=== PATIENT | female | born 1945 | race Caucasian/White ===

== ENCOUNTER 2019-11-21 09:02 | Outpatient (CLI) | payer MEDICARE, SELFPAY ==
--- NOTE | ~2019-11-21 | MM_ITS ---
EXAMINATION: MM screening [facility] [place] BI w [facility] HISTORY: Screening mammogram TECHNIQUE: Craniocaudal and mediolateral oblique 3-D tomosynthesis images were obtained and synthetic 2-D images were generated. CAD analysis was submitted and interpreted. COMPARISON: Comparison to multiple prior studies sequentially, with oldest reviewed study dated 04/15. BREAST PARENCHYMAL COMPOSITION: There are scattered areas of fibroglandular density. FINDINGS: There is no evidence of suspicious mass, calcification, or architectural distortion to sugg est malignancy in either breast. There has been no suspicious interval change. IMPRESSION: 1. No mammographic evidence of malignancy. 2. Recommend routine screening mammography in one year. BI-RADS Category 1: Negative Reviewed, dictated and finalized at location A.
== END 2019-11-21 09:03 | disposition home or self-care (01) ==
LOC: ANHIMG 09:05
PROVIDERS: PCP Internal Medicine; Visit Provider Internal Medicine
DX: Z12.31 Encounter for screening mammogram for malignant neoplasm of breast (principal)
CPT/HCPCS: 77063; 77067

== ENCOUNTER 2020-12-20 08:23 | Outpatient (CLI) | payer MEDICARE, SELFPAY ==
--- NOTE | ~2020-12-20 | MM_ITS ---
EXAMINATION: MM screening [facility] BI w kedar HISTORY: Screening mammogram TECHNIQUE: Craniocaudal and mediolateral oblique 3-D tomosynthesis images were obtained and synthetic 2-D images were generated. CAD analysis was submitted and interpreted. COMPARISON: 11/21/2019, 11/12/2018, 10/28/2017 BREAST PARENCHYMAL COMPOSITION: There are scattered areas of fibroglandular density. FINDINGS: Scattered benign-appearing calcifications are present. There is no evidence of suspicious m ass, calcification, or architectural distortion to suggest malignancy in either breast. There has bee n no suspicious interval change. IMPRESSION: 1. No mammographic evidence of malignancy. 2. Recommend routine screening mammography in one year. BI-RADS Category 2: Benign finding(s). Reviewed, dictated and finalized at location A.
== END 2020-12-20 08:24 | disposition home or self-care (01) ==
LOC: ANHIMG 08:25
PROVIDERS: PCP Internal Medicine; Visit Provider Internal Medicine
DX: Z12.31 Encounter for screening mammogram for malignant neoplasm of breast (principal)
CPT/HCPCS: 77063; 77067

== ENCOUNTER 2021-02-13 08:32 | Outpatient (CLI) | payer MEDICARE, SELFPAY ==
--- NOTE | ~2021-02-13 | DEXA_ITS ---
Bone Density Report Name: Tonya Claudio Age: 75 Sex: Female Ethnicity: White Date of : 1945 Indication: postmenopausal; Referring Provider: Hallie Tavares Study: Bone densitometry was performed. Exam Date: February 13, 2021 Accession number: [id number] Bone Density: Region BMD T-score Z-score Classification AP Spine (L1, L4) 1.423 3.5 5.8 Normal Femoral Neck (Left) 0.846 0.0 2.0 Normal Total Hip (Left) 1.169 1.9 3.6 Normal Total Hip Bilateral Avg 1.147 1.7 3.4 Normal Femoral Neck (Right) 0.778 -0.6 1.4 Normal Total Hip (Right) 1.123 1.5 3.2 Normal World Health Organization criteria for BMD impression classify patients as: Normal (T-score at or above -1.0), Osteopenia (T-score between -1.0 and -2.5), or Osteoporosis (T-score at or below -2.5). 10-year Fracture Risk: FRAX not reported because: All T-scores for Spine Total, Hip Total, Femoral Neck at or above -1.0 Clinical Information Provided by Patient: Has used the following medications: Vitamin D, Calcium Patient maximum height was 64 Menopause Age: 52 No regular weight bearing exercise Drinks caffeinated beverages Onset of menses at age 18 Number of children 3 Impression: The patient has normal bone mass. Discussion: BONE DENSITY IS ABOVE THE MINIMUM DESIRABLE LEVEL AT ALL SKELETAL SITES TESTED. This patient?s bone mineral density is above the minimum desirable level (T-score -1.0 or better) at all sites measured. The patient should follow a healthful lifestyle (good nutrition with adequate calcium and vitamin D, and appropriate weight-bearing exercise). Follow-Up: Consider repeating this study in 5 years or sooner if there is some new clinical indication. Reported by: MEE on 02/13/2021 9:10:00 AM. Reviewed, dictated and finalized at location [facility]ukumar [facility]
== END 2021-02-13 08:33 | disposition home or self-care (01) ==
LOC: ANHIMG 08:35
PROVIDERS: PCP Internal Medicine; Visit Provider Nurse Practitioner
DX: Z78.0 Asymptomatic menopausal state (principal)
CPT/HCPCS: 77080

== ENCOUNTER 2021-12-22 08:49 | Outpatient (CLI) | payer MEDICARE, SELFPAY ==
--- NOTE | ~2021-12-22 | MM_ITS ---
EXAMINATION: MM screening [facility] w [facility] HISTORY: Screening mammogram TECHNIQUE: Craniocaudal and mediolateral oblique 3-D tomosynthesis images were obtained and synthetic 2-D images were generated. CAD analysis was submitted and interpreted. COMPARISON: 12/20/2020, 11/21/2019, 11/12/2018 BREAST PARENCHYMAL COMPOSITION: There are scattered areas of fibroglandular density. FINDINGS: Scattered benign-appearing calcifications are present. There is no suspicious mass, calcifi cation, or architectural distortion to suggest malignancy in either breast. There has been no suspici ous interval change. IMPRESSION: 1. No mammographic evidence of malignancy. 2. Recommend routine screening mammography in one year. BI-RADS Category 2: Benign finding(s). Reviewed, dictated and finalized at location A.
== END 2021-12-22 08:50 | disposition home or self-care (01) ==
LOC: ANHIMG 08:52
PROVIDERS: PCP Internal Medicine; Visit Provider Nurse Practitioner
DX: Z12.31 Encounter for screening mammogram for malignant neoplasm of breast (principal)
CPT/HCPCS: 77063; 77067

== ENCOUNTER 2022-02-26 18:33 | Inpatient (IN) | payer MEDICARE, SELFPAY ==
--- NOTE | ~2022-02-26 | CT_ITS ---
EXAMINATION: CT brain wo con DATE: 02/26/2022 19:25 INDICATION: Head injury. TECHNIQUE: Computed tomography (CT) of the head was performed without intravenous contrast. The mA wa s adjusted according to patient size. Iterative reconstruction technique was employed. The dose-lengt h product was 605.33 mGy-cm. COMPARISON: Head CT 12/10/2016 FINDINGS: There is old infarct in right temporoparietal-occipital region. There is a small old infarc t in left frontoparietal region. There are scattered areas of low attenuation in the cerebral white m atter. There is no intracranial hemorrhage, acute infarction, or abnormal intracranial mass lesion. T he ventricles are normal in size. There is mild mucosal thickening in the paranasal sinuses. There ar e likely changes of ocular lens replacement surgeries. The mastoid air cells are normal. IMPRESSION: 1. Old infarcts involving right temporal parietal occipital region and left frontoparietal region. 2. Stable moderate nonspecific cerebral white matter disease, which likely represents chronic small v essel ischemic disease. Reviewed, dictated and finalized at location A. IMPRESSION: 1. Old infarcts involving right temporal parietal occipital region and left fro ntoparietal region. 2. Stable moderate nonspecific cerebral white matter disease, which likely repr esents chronic small vessel ischemic disease.
--- NOTE | ~2022-02-26 | XR_ITS ---
EXAMINATION: XR foot RT 2V DATE: 02/27/2022 15:56 INDICATION: Right foot injury and pain. TECHNIQUE: 2 views of right foot were obtained. COMPARISON: Right foot radiograph 12/08/2011 FINDINGS: Bone alignment is normal. No fracture. There is chronic heterotopic ossification distal to medial and lateral malleoli. There is mild osteoarthritis of some of the interphalangeal joints. Ther e are enthesophytes at the posterior and plantar aspects of calcaneal tuberosity. IMPRESSION: 1. No fracture. Reviewed, dictated and finalized at location A. IMPRESSION: 1. No fracture.
--- NOTE | ~2022-02-26 | XR_ITS ---
EXAMINATION: XR chest 1V portable INDICATION: COVID 19 positive TECHNIQUE: Portable AP chest at 0640 hours COMPARISON: 12/10/2016 FINDINGS: The lungs are free of acute opacities. No pleural effusion or pneumothorax. The cardiomedia stinal silhouette is stable. IMPRESSION: 1. No acute cardiopulmonary abnormality. Reviewed, dictated and finalized at location B.
[2022-02-26 18:35] VITALS: BP 136/96; PULSE 114; RESP 30; TEMP 36.9; O2SAT 96
--- NOTE | 2022-02-26 18:42 | ECG_ITS ---
Measurements Intervals [place] Rate: 117 P: NC: 0 QRS: -17 QRSD: 82 T: 64 QT: 327 QTc: 458 Interpretive Statements ATRIAL FIBRILLATION WITH RAPID VENTRICULAR RESPONSE LOW QRS VOLTAGE IN PRECORDIAL LEADS POOR R WAVE PROGRESSION, CONSIDER ANTERIOR INFARCT BORDERLINE ST-T WAVE ABNORMALITY- HIGH LATERAL LEADS BASELINE ARTIFACT- I, II, III, AVR, AVL, AVF ABNORMAL ECG NO PREVIOUS ECG AVAILABLE FOR COMPARISON Electronically Signed On 02-26-2022 21:40:37 CDT by Isael Gresham D.O.
[2022-02-26 18:43] VITALS: PULSE 104
[2022-02-26 19:06] LABS: Basophils Percent Auto 0.5 % (0.2-1.2); Eosinophils Percent Auto 0.1 % (0-4.4); Hematocrit 36.9 % (37.0-47.0); Hemoglobin 12.3 g/dL (12.0-15.0); Immature Granulocyte Absolute 0.03 K/mm3 (0.00-0.031); Immature Granulocyte Percent A 0.4 % (0-0.5); Lymphocytes Absolute Auto 0.45 K/mm3 (0.9-3.2); Lymphocytes Percent Auto 5.8 % (18.3-44.2); Mean Corpuscular HGB Conc 33.3 g/dl (32-36); Mean Corpuscular Volume 98.9 fl (80-100); Mean Platelet Volume 10.6 fl (7.4-10.4); Monocytes Absolute Auto 0.8 K/mm3 (0.1-0.6); Monocytes Percent Auto 10.8 % (2.6-8.5); Neutrophils Absolute Auto 6.4 K/mm3 (1.3-6.7); Neutrophils Percent Auto 82.4 % (45.5-73.1); Platelet Count Result 212 k/mm3 (150-375); Red Blood Count 3.73 M/mm3 (4.2-5.4); Red Cell Distribution Width 13.4 % (11.5-14.5); White Blood Count 7.7 K/mm3 (4.5-10.0)
[2022-02-26 19:17] LABS: Alanine Aminotransferase 26 U/L (6-35); Albumin Level 4.7 g/dL (3.5-5.1); Alkaline Phosphatase 105 U/L (38-126); Anion Gap 17 mmol/L (8-16); Aspartate Amino Transferase 54 U/L (14-36); Bilirubin,Total 0.6 mg/dL (0.2-1.3); Blood Urea Nitrogen 14 mg/dL (7-17); Calcium 8.9 mg/dL (8.4-10.2); Carbon Dioxide 21 mmol/L (22-30); Chloride 98 mmol/L (98-107); Estimated CRCL calculation 52 ml/min; Estimated Glomerular Filt Rate > 60; Glucose 146 mg/dL (65-110); Potassium 3.9 mmol/L (3.4-5.0); Sodium 136 mmol/L (137-145)
[2022-02-26 19:23] LABS: INR 1.6; Prothrombin Time 18.2 Seconds (11.1-14.7)
[2022-02-26 19:24] LABS: Partial Thromboplastin Time 31.4 SECONDS (22.3-36.8)
[2022-02-26 19:48] LABS: Appearance Urine Clear (Clear); Bilirubin Urine Negative (Negative); Blood Urine 2+ (Negative); Color Urine Yellow (Yellow); Glucose Urine UA Negative (Negative); Ketones Urine Negative (Negative); Leukocyte Esterase Ur 2+ LEU/UL (Negative); Nitrate Urine Negative (Negative); Protein Urine 2+ mg/dL (Negative); Specific Grav Ur 1.025 (1.001-1.035); Urobilinogen Urine 0.2 mg/dL (<2.0)
[2022-02-26 19:52] LABS: Mucus Urine Rare /lpf; RBC Urine 21-50 /hpf (0-2); Squamous Epithelial Cell Urine Occasional /hpf (Few); WBC Urine 51-75 /hpf
[2022-02-26 19:53] LABS: Add Urine Microscopic? YES
--- NOTE | 2022-02-26 21:09 | ED.GENADULT ---
HPI - General Adult General Chief complaint: Altered Mental Status Stated complaint: SYNCOPE, HIT HEAD Time Seen by Provider: 02/26/22 19:03 History of Present Illness HPI narrative: Patient is a 76-year-old female who presents ER after fall at her her home residence. Per EMS with syncopal episode. Patient takes warfarin for paroxysmal atrial fibrillation. Patient is currently alert and oriented x2. She has no reports of pain but can also provide no history. Related Data Allergies Allergy/AdvReac Type Severity Reaction Status Date / Time amoxicillin Allergy Unknown Confusion Verified 02/26/22 18:47 ampicillin Allergy Unknown Confusion Verified 02/26/22 18:47 codeine Allergy Unknown Confusion Verified 02/26/22 18:47 diazepam Allergy Unknown Confusion Verified 02/26/22 18:47 Penicillins Allergy Unknown Confusion Verified 02/26/22 18:47 Review of Systems Review of Systems: ROS unobtainable: Yes unobtainable due to mental status PMFSH Past Medical History Medical History (Updated 02/26/22 @ 21:52 by Avinash Willingham MD) CVA, old, hemiparesis Gallbladder disease Osteoarthritis Paroxysmal atrial fibrillation Postmenopausal Pure hypercholesterolemia Screening for breast cancer Screening for colon cancer Skin tags, multiple acquired Surgical History Surgical History Previous back surgery Family History Family History Mother Hypertension Patient's mother is Sibling Family history of malignant neoplasm Family history of chronic obstructive pulmonary disease, Onset Age: 55 Patient's sister is Father Patient's father is Social History Social History Smoking status: Never smoker Alcohol intake: never Exam Narrative: GENERAL: Well-appearing, well-nourished, and in no acute distress. HEAD: Normocephalic, atraumatic. EYES: PERRL and EOMI. ENT: Mucous membranes moist. CHEST: Clear to auscultation. No respiratory distress. HEART: Irregular regular rate and rhythm. Normal peripheral pulses. ABDOMEN: Soft, nontender, nondistended. EXTREMITIES: Normal range of motion. No edema. SKIN: Warm, dry, no rash. NEURO: Alert and oriented x2. PSYCH: Normal mood and affect. Course Vital Signs Vital signs: Vital Signs Temperature 98.5 F 02/26/22 18:35 Pulse Rate 114 H 02/26/22 18:35 Respiratory Rate 30 H 02/26/22 18:35 Blood Pressure 136/96 H 02/26/22 18:35 Pulse Oximetry 96 02/26/22 18:35 Oxygen Delivery Room Air 02/26/22 18:35 Temperature 98.5 F 02/26/22 18:35 Pulse Rate 104 H 02/26/22 18:43 Respiratory Rate 30 H 02/26/22 18:35 Blood Pressure 136/96 H 02/26/22 18:35 Pulse Oximetry 96 02/26/22 18:35 Oxygen Delivery Room Air 02/26/22 18:35 Medical Decision Making Vital Signs Vital Signs: Vital Signs Temperature 98.5 F 02/26/22 18:35 Pulse Rate 114 H 02/26/22 18:35 Respiratory Rate 30 H 02/26/22 18:35 Blood Pressure 136/96 H 02/26/22 18:35 Pulse Oximetry 96 02/26/22 18:35 Oxygen Delivery Room Air 02/26/22 18:35 Temperature 98.5 F 02/26/22 18:35 Pulse Rate 104 H 02/26/22 18:43 Respiratory Rate 30 H 02/26/22 18:35 Blood Pressure 136/96 H 02/26/22 18:35 Pulse Oximetry 96 02/26/22 18:35 Oxygen Delivery Room Air 02/26/22 18:35 Lab Data Result diagrams: 02/26/22 18:45 02/26/22 18:45 Labs: Lab Results 02/26/22 02/26/22 02/26/22 Range/Units 18:45 18:45 18:45 WBC 7.7 (4.5-10.0) K/mm3 RBC 3.73 L (4.2-5.4) M/mm3 Hgb 12.3 (12.0-15.0) g/dL Hct 36.9 L (37.0-47.0) % MCV 98.9 (80-100) fl MCH 33.0 (26-34) pg MCHC 33.3 (32-36) g/dl RDW 13.4 (11.5-14.5) % Plt Count 212 (150-375) k/mm3 MPV 10.6 H (7.4-10.4) fl Immature
[2022-02-26 22:07] VITALS: PULSE 110
[2022-02-26] MEDS: SODIUM CHLORIDE 0.9% IV 1,000 ML 999 ML IV CONT (22:07)
[2022-02-26] MEDS: SOTALOL HCL 80 MG TABLET PO (22:07)
[2022-02-26 22:21] VITALS: BP 114/91; PULSE 113; RESP 26; O2SAT 97
--- NOTE | 2022-02-26 23:01 | PM.IMHP ---
H&P: HPI History of Present Illness Date/Time: 02/26/22 23:01 Chief Complaint: Confusion and fall Narrative: 76-year-old female with a past medical history of chronic atrial fibrillation on chronic anticoagulation, CVA, gout, hypertension and type 2 diabetes mellitus who presented to the ER from home due to fall and confusion. Source of information comes from family report as the patient is only oriented to person and year. The patient's reports and review of records from old medical record system that the patient has been having episodes of confusion on and off for a couple of days. He denies ever having had any recent cough congestion or fevers. He states that she has just been off. She was walking to the bathroom today when she fell. He thinks that she may have tripped and fallen. She does not use any assistive devices to walk. She denies any dysuria, hematuria or changes in bowel habits. She spiked a fever of 102.2 after my evaluation. Her reports that she has not been eating as well for the last day or so. Patient denies any sore throat. EMS had reported that the patient had a syncopal episode but they also reported that the patient had evaluated at the hospital recently. The states that the patient has not required any hospitalization or medical intervention in quite some time he does not know where this report came from. Review of Systems Review of Systems: Review of systems unobtainable due to the patient's confusion. [facility] Past Medical History Medical History (Updated 02/27/22 @ 05:38 by Jaycee Wallace DO) Anoxic encephalopathy (~2008) Requiring intubation and G-tube placement with subsequent G-tube removal. Chronic anticoagulation Chronic atrial fibrillation CVA (cerebral vascular accident) (~2016) Gout Mitral valve prolapse Osteoarthritis Postmenopausal Pure hypercholesterolemia Skin tags, multiple acquired Type 2 diabetes mellitus without complications Vitamin D deficiency Surgical History Surgical History (Updated 02/26/22 @ 23:18 by Jaycee Wallace DO) History of appendectomy History of detached retina repair History of total hysterectomy with bilateral salpingo-oophorectomy (BSO) (~2011) Due to dysfunctional uterine bleeding requiring multiple transfusions Hx of cholecystectomy Previous back surgery Family History Family History Mother Hypertension Intracranial bleed Sibling Family history of malignant neoplasm Diabetes mellitus COPD (chronic obstructive pulmonary disease) Father Gangrene Social History Social History (Updated 02/26/22 @ 23:21 by Jaycee Wallace DO) Social History: Patient lives at home with her . She is a homemaker. Surrogate decision maker: Smoking status: Never smoker Alcohol intake: unknown Substance use: unknown Spiritual care concerns: No Meds Home Medications and Allergies Home Medications Medication Instructions Recorded Confirmed Type cholecalciferol (vitamin D3) 50 100 mcg PO DAILY #90 tabs 12/24/20 02/26/22 Rx mcg (2,000 unit) tablet lisinopril 20 mg tablet 20 mg PO DAILY #90 tabs 10/27/21 02/26/22 Rx allopurinol 300 mg tablet 300 mg PO DAILY 02/26/22 02/26/22 History atorvastatin 40 mg tablet 40 mg PO DAILY 02/26/22 02/26/22 History metformin 500 mg tablet 1,000 mg PO DAILY 02/26/22 02/26/22 History metformin 500 mg tablet 500 mg PO .MARION 02/26/22 02/26/22 History sotalol 80 mg tablet 80 mg PO Q12H 02/26/22 02/26/22 History warfarin 5 mg tablet 2.5 mg PO .MON/Wed02/26/22 02/26/22 History warfarin 5 mg tablet 5 mg PO ./WED//SAT/S 02/26/22 02/26/22 History Allergies Allergy/AdvReac Type Severity Reaction Status Date / Time amoxicillin Allergy Unknown Confusion Verified 02/26/22 18:47 ampicillin Allergy Unknown Confusion Verified 02/26/22 18:47 codeine Allergy Unknown Confusion Verifi
[2022-02-26 23:07] VITALS: BP 140/90; PULSE 96; RESP 18; O2SAT 98
[2022-02-26 23:37] VITALS: BMI 35.2
--- NOTE | 2022-02-26 23:41 | ADMGEN ---
This patient, Tonya Claudio, was admitted to 2 Medical Room 258-01. Patient/family oriented to hospital policies and general routines including ID bracelet, bed and alarms, visiting hours, pain management, procedures, bathroom and other care routines, personal items, smoking policy, room service/diet, and visiting hours. Information on how to activate the Rapid Response Team has been discussed. Patient/Family are encouraged to report perceived risks to care and to ask questions if they do not understand what they are told or what they should do.
[2022-02-26 23:42] VITALS: BMI 35.4
[2022-02-27] VITALS (13 sets, daily range): BP systolic 106–142; BP diastolic 64–88; PULSE 60–99; RESP 16–20; TEMP 36.2–39; O2SAT 92–98
[2022-02-27] MEDS: SODIUM CHLORIDE 0.9% IV 1,000 ML 125 ML IV CONT (00:30)
[2022-02-27] MEDS: ACETAMINOPHEN 325 MG TABLET 650 MG PO (02:50)
[2022-02-27 05:14] LABS: Influenza A QL RT-PCR Negative (Negative); Influenza B QL RT-PCR Negative (Negative); SARS-CoV-2 RNA PCR Positive
[2022-02-27 06:08] LABS: Hematocrit 32.7 % (37.0-47.0); Mean Corpuscular HGB Conc 33.6 g/dl (32-36); Mean Corpuscular Hemoglobin 33.4 pg (26-34); Mean Corpuscular Volume 99.4 fl (80-100); Mean Platelet Volume 10.4 fl (7.4-10.4); Platelet Count Result 166 k/mm3 (150-375); Red Blood Count 3.29 M/mm3 (4.2-5.4); Red Cell Distribution Width 13.3 % (11.5-14.5); White Blood Count 6.2 K/mm3 (4.5-10.0)
[2022-02-27 06:45] LABS: Anion Gap 11 mmol/L (8-16); Blood Urea Nitrogen 16 mg/dL (7-17); Calcium 8.4 mg/dL (8.4-10.2); Carbon Dioxide 23 mmol/L (22-30); Chloride 101 mmol/L (98-107); Estimated CRCL calculation 60 ml/min; Estimated Glomerular Filt Rate > 60; Glucose 97 mg/dL (65-110); Potassium 3.8 mmol/L (3.4-5.0); Sodium 135 mmol/L (137-145)
[2022-02-27 08:36] LABS: Glucose Point of Care 82 mg/dl (65-105)
[2022-02-27 09:24] LABS: INR 1.4; Prothrombin Time 16.2 Seconds (11.1-14.7)
[2022-02-27 10:36] LABS: Glucose Point of Care 85 mg/dl (65-105)
[2022-02-27] MEDS: allopurinoL 300 MG TABLET PO (10:38)
[2022-02-27] MEDS: CHOLECALCIFEROL 1,000 UNITS TABLET 4000 UNITS PO (10:38)
[2022-02-27] MEDS: SOTALOL HCL 80 MG TABLET PO ×2 (10:39→20:49)
[2022-02-27] MEDS: SODIUM CHLORIDE 0.9% IV 1,000 ML 75 ML IV CONT ×2 (10:46→20:48)
[2022-02-27] MEDS: metFORMIN HCL 500 MG TABLET 1000 MG PO (10:47)
[2022-02-27] MEDS: ATORVASTATIN 40 MG TABLET PO (10:47)
[2022-02-27] MEDS: lisinopriL 20 MG TABLET PO (10:47)
[2022-02-27 12:10] LABS: Glucose Point of Care 89 mg/dl (65-105)
--- NOTE | 2022-02-27 15:06 | PCPTNOTE ---
Attempted PT evaluation, patient reporting R ankle/knee pain at rest. Upon observation, Patient's R knee swollen and R ankle swollen/bruised. RN was brought into room to assess. RN contacted hospitalist. Per RN, x-ray to be ordered for R ankle. Will Wait to evaluate until it is known it is safe to transfer patient. Will Follow.
--- NOTE | 2022-02-27 15:11 | P.PNIM_ITS ---
Progress Note: A&P Assessment and Plan (1) COVID-19: Code(s): U07.1 - COVID-19 Status: Acute Assessment and Plan: COVID PCR positive on 02/27/2022. * CXR with no acute findings * supportive care as needed. Patient has no respiratory symptoms. * not a candidate for dexamethasone or remdesivir as she has no supplemental oxygen requirement * unable to indicate vaccination status. No report of COVID vaccine in EMR * continue isolation precautions (2) Pyuria: Code(s): R82.81 - Pyuria Status: Acute Assessment and Plan: UA is abnormal with 2+ leuk esterase and 51-75 white blood cells * urine culture is pending * continue empiric ceftriaxone while awaiting urine culture * no leukocytosis. patient is febrile with T-max 102.2?, however this may be due to COVID-19. * continue with gentle IV fluid hydration until better tolerating p.o. intake (3) Acute metabolic encephalopathy: Code(s): G93.41 - Metabolic encephalopathy Status: Acute Assessment and Plan: Due to underlying infection with COVID and possible UTI. * Patient A&O x2 today * Will continue to monitor and provide supportive care. (4) Chronic atrial fibrillation with RVR: Code(s): I48.20 - Chronic atrial fibrillation, unspecified Status: Acute Assessment and Plan: Patient has chronic atrial fibrillation and was in AFib RVR in the ER. * Patient's heart rate improved after 1 L fluid bolus and the patient's evening dose of sotalol. * rate controlled at this time * continue home sotalol * monitor on telemetry. (5) Chronic anticoagulation: Code(s): Z79.01 - FPC (current) use of anticoagulants Status: Acute Assessment and Plan: maintained on warfarin due to history of AFib * INR subtherapeutic at 1.4 * received increased dose of warfarin last night 7.5 mg and will transition to 5 mg daily warfarin starting tonight * monitor INR daily. goal is 2-3 * INR may be affected by antibiotics, continue to monitor (6) Fall: Qualifiers: Encounter type: initial encounter Qualified Code(s): W19.XXXA - Unspecified fall, initial encounter Code(s): W19.XXXA - Unspecified fall, initial encounter Status: Acute Assessment and Plan: patient had mechanical fall at home * head CT with no acute findings * when patient was evaluated by therapy there was notice of bruising and tenderness of the right foot. Will obtain right foot x-ray. * appreciate PT/OT eval * fall precautions implemented (7) Type 2 diabetes mellitus: Code(s): E11.9 - Type 2 diabetes mellitus without complications Status: Acute Assessment and Plan: A1c is 5.8 * blood sugars well controlled * continue home metformin * continue Accu-Cheks, low-dose sliding scale insulin, hypoglycemic protocol Subjective Date/time seen: 02/27/22 15:11 Interval history: date of service: 02/27/2022 Tonya Claudio is a 76-year-old male with a history of CVA, chronic atrial fibrillation on anticoagulation, type 2 diabetes mellitus, mitral valve prolapse, and hypertension who is seen in follow-up for encephalopathy secondary to UTI and COVID. Patient is oriented to self and location only. She is unable to provide a very reliable history. She does specifically deny abdominal pain, chest pain, shortness of breath. denies swelling of her extremities. Reports having a bowel movement today. Unable to obtain any additional
--- NOTE | 2022-02-27 15:11 | PM.IMPN ---
Progress Note: A&P Assessment and Plan (1) COVID-19: Code(s): U07.1 - COVID-19 Status: Acute Assessment and Plan: COVID PCR positive on 02/27/2022. CXR with no acute findings supportive care as needed. Patient has no respiratory symptoms. not a candidate for dexamethasone or remdesivir as she has no supplemental oxygen requirement unable to indicate vaccination status. No report of COVID vaccine in EMR continue isolation precautions (2) Pyuria: Code(s): R82.81 - Pyuria Status: Acute Assessment and Plan: UA is abnormal with 2+ leuk esterase and 51-75 white blood cells urine culture is pending continue empiric ceftriaxone while awaiting urine culture no leukocytosis. patient is febrile with T-max 102.2?, however this may be due to COVID-19. continue with gentle IV fluid hydration until better tolerating p.o. intake (3) Acute metabolic encephalopathy: Code(s): G93.41 - Metabolic encephalopathy Status: Acute Assessment and Plan: Due to underlying infection with COVID and possible UTI. Patient A&O x2 today Will continue to monitor and provide supportive care. (4) Chronic atrial fibrillation with RVR: Code(s): I48.20 - Chronic atrial fibrillation, unspecified Status: Acute Assessment and Plan: Patient has chronic atrial fibrillation and was in AFib RVR in the ER. Patient's heart rate improved after 1 L fluid bolus and the patient's evening dose of sotalol. rate controlled at this time continue home sotalol monitor on telemetry. (5) Chronic anticoagulation: Code(s): Z79.01 - USP (current) use of anticoagulants Status: Acute Assessment and Plan: maintained on warfarin due to history of AFib INR subtherapeutic at 1.4 received increased dose of warfarin last night 7.5 mg and will transition to 5 mg daily warfarin starting tonight monitor INR daily. goal is 2-3 INR may be affected by antibiotics, continue to monitor (6) Fall: Qualifiers: Encounter type: initial encounter Qualified Code(s): W19.XXXA - Unspecified fall, initial encounter Code(s): W19.XXXA - Unspecified fall, initial encounter Status: Acute Assessment and Plan: patient had mechanical fall at home head CT with no acute findings when patient was evaluated by therapy there was notice of bruising and tenderness of the right foot. Will obtain right foot x-ray. appreciate PT/OT eval fall precautions implemented (7) Type 2 diabetes mellitus: Code(s): E11.9 - Type 2 diabetes mellitus without complications Status: Acute Assessment and Plan: A1c is 5.8 blood sugars well controlled continue home metformin continue Accu-Cheks, low-dose sliding scale insulin, hypoglycemic protocol Subjective Date/time seen: 02/27/22 15:11 Interval history: date of service: 02/27/2022 Tonya Claudio is a 76-year-old male with a history of CVA, chronic atrial fibrillation on anticoagulation, type 2 diabetes mellitus, mitral valve prolapse, and hypertension who is seen in follow-up for encephalopathy secondary to UTI and COVID. Patient is oriented to self and location only. She is unable to provide a very reliable history. She does specifically deny abdominal pain, chest pain, shortness of breath. denies swelling of her extremities. Reports having a bowel movement today. Unable to obtain any additional history Review of Systems Review of Systems: General: obese, well-appearing 76-year-old female, supine in bed, comfortable, NARD Neuro: awake, alert and oriented x to self and location. States the year is 2022. Speech clear, no focal neuro deficits noted HEENMT: normocephalic, atraumatic, EOMI, sclerae anicteric, moist oral mucosa Respiratory: clear to auscultation bilaterally, nonlabored breathing Cardio: regular rate, regular rhyth
--- NOTE | 2022-02-27 15:21 | PCOTNOTE ---
Per physical therapy's attempt to evaluation, patient's R knee swollen and R ankle swollen/bruised. RN was brought into room to assess. RN contacted hospitalist. Per RN, x-ray to be ordered for R ankle. Will Wait to evaluate until it is known it is safe to transfer patient. Will Follow.
[2022-02-27 17:17] LABS: Glucose Point of Care 90 mg/dl (65-105)
[2022-02-27] MEDS: WARFARIN (*PBKC) 5 MG TABLET PO (17:57)
[2022-02-27] MEDS: metFORMIN HCL 500 MG TABLET PO (17:58)
[2022-02-27 21:34] LABS: Glucose Point of Care 85 mg/dl (65-105)
[2022-02-28] VITALS (11 sets, daily range): BP systolic 110–138; BP diastolic 71–78; PULSE 72–123; RESP 16; TEMP 36.6–37; O2SAT 96–97
[2022-02-28 05:51] LABS: Hematocrit 35.1 % (37.0-47.0); Hemoglobin 11.6 g/dL (12.0-15.0); Mean Corpuscular Hemoglobin 33.4 pg (26-34); Mean Corpuscular Volume 101.2 fl (80-100); Mean Platelet Volume 10.6 fl (7.4-10.4); Platelet Count Result 171 k/mm3 (150-375); Red Blood Count 3.47 M/mm3 (4.2-5.4); Red Cell Distribution Width 13.4 % (11.5-14.5); White Blood Count 5.5 K/mm3 (4.5-10.0)
[2022-02-28 06:05] LABS: Alanine Aminotransferase 40 U/L (6-35); Albumin Level 3.8 g/dL (3.5-5.1); Alkaline Phosphatase 91 U/L (38-126); Anion Gap 11 mmol/L (8-16); Aspartate Amino Transferase 126 U/L (14-36); Bilirubin,Total 0.4 mg/dL (0.2-1.3); Blood Urea Nitrogen 15 mg/dL (7-17); CRP 5.7 mg/dL (<1.0); Calcium 8.3 mg/dL (8.4-10.2); Carbon Dioxide 21 mmol/L (22-30); Chloride 101 mmol/L (98-107); Estimated CRCL calculation 67 ml/min; Estimated Glomerular Filt Rate > 60; Glucose 78 mg/dL (65-110); Lactate Dehydrogenase 340 U/L (120-246); Potassium 3.6 mmol/L (3.4-5.0); Sodium 133 mmol/L (137-145)
[2022-02-28 08:45] LABS: INR 1.2
[2022-02-28 09:02] LABS: Glucose Point of Care 76 mg/dl (65-105)
[2022-02-28] MEDS: metFORMIN HCL 500 MG TABLET 1000 MG PO (10:56)
[2022-02-28] MEDS: CHOLECALCIFEROL 1,000 UNITS TABLET 4000 UNITS PO (10:56)
[2022-02-28] MEDS: allopurinoL 300 MG TABLET PO (10:57)
[2022-02-28] MEDS: SOTALOL HCL 80 MG TABLET PO ×2 (10:57→21:17)
[2022-02-28] MEDS: lisinopriL 20 MG TABLET PO (10:57)
[2022-02-28] MEDS: ATORVASTATIN 40 MG TABLET PO (10:58)
--- NOTE | 2022-02-28 11:58 | P.PNIM_ITS ---
Progress Note: A&P Assessment and Plan (1) COVID-19: Code(s): U07.1 - COVID-19 Status: Acute Assessment and Plan: COVID PCR positive on 02/27/2022. * CXR with no acute findings * supportive care as needed. Patient has no respiratory symptoms. * not a candidate for dexamethasone or remdesivir as she has no supplemental oxygen requirement * continue isolation precautions * patient has not been vaccinated for COVID-19 (2) Acute UTI: Code(s): N39.0 - Urinary tract infection, site not specified Status: Acute Assessment and Plan: UA is abnormal with 2+ leuk esterase and 51-75 white blood cells * preliminary urine culture with growth of Gram-negative bacilli * continue empiric ceftriaxone while awaiting urine culture * no leukocytosis. patient febrile with T-max 102.2?, however this may be due to COVID-19. has been afebrile >24h * will discontinue IV fluids at this time as patient has been rehydrated appropriately, tolerating p.o. intake, no longer febrile (3) Acute metabolic encephalopathy: Code(s): G93.41 - Metabolic encephalopathy Status: Acute Assessment and Plan: likely secondary to acute UTI * Patient A&O x2 accurately today, however mental status is significantly improved * Will continue to monitor and provide supportive care. (4) Chronic atrial fibrillation with RVR: Code(s): I48.20 - Chronic atrial fibrillation, unspecified Status: Acute Assessment and Plan: Patient has chronic atrial fibrillation and was in AFib RVR in the ER. * Patient's heart rate improved after 1 L fluid bolus and the patient's evening dose of sotalol. * rate controlled at this time * continue home sotalol * monitor on telemetry. (5) Chronic anticoagulation: Code(s): Z79.01 - prison (current) use of anticoagulants Status: Acute Assessment and Plan: maintained on warfarin due to history of AFib * INR subtherapeutic at 1.2 * will increase warfarin to 7.5 mg tonight * monitor INR daily. goal is 2-3 * INR may be affected by antibiotics, continue to monitor (6) Fall: Qualifiers: Encounter type: initial encounter Qualified Code(s): W19.XXXA - Unspec ified fall, initial encounter Code(s): W19.XXXA - Unspecified fall, initial encounter Status: Acute Assessment and Plan: patient had mechanical fall at home * head CT with no acute findings * when patient was evaluated by therapy there was notice of bruising and tenderness of the right foot. Right foot x-ray with no injury or fracture * appreciate PT/OT eval * fall precautions implemented (7) Type 2 diabetes mellitus: Code(s): E11.9 - Type 2 diabetes mellitus without complications Status: Acute Assessment and Plan: A1c is 5.8 * blood sugars well controlled * continue home metformin * continue Accu-Cheks, low-dose sliding scale insulin, hypoglycemic protocol Subjective Date/time seen: 02/28/22 11:58 Interval history: date of service: 02/28/2022 Tonya Claudio is a 76-year-old male with a history of CVA, chronic atrial fibrillation on anticoagulation, type 2 diabetes mellitus, mitral valve prolapse, and hypertension who is seen in follow-up for encephalopathy secondary to UTI and COVID. mental status seems improved today. Patient is oriented to self and location. Initially states the year is 2022, but corrects to 2021. initially states the month is January but then corrects
--- NOTE | 2022-02-28 11:58 | PM.IMPN ---
Progress Note: A&P Assessment and Plan (1) COVID-19: Code(s): U07.1 - COVID-19 Status: Acute Assessment and Plan: COVID PCR positive on 02/27/2022. CXR with no acute findings supportive care as needed. Patient has no respiratory symptoms. not a candidate for dexamethasone or remdesivir as she has no supplemental oxygen requirement continue isolation precautions patient has not been vaccinated for COVID-19 (2) Acute UTI: Code(s): N39.0 - Urinary tract infection, site not specified Status: Acute Assessment and Plan: UA is abnormal with 2+ leuk esterase and 51-75 white blood cells preliminary urine culture with growth of Gram-negative bacilli continue empiric ceftriaxone while awaiting urine culture no leukocytosis. patient febrile with T-max 102.2?, however this may be due to COVID-19. has been afebrile >24h will discontinue IV fluids at this time as patient has been rehydrated appropriately, tolerating p.o. intake, no longer febrile (3) Acute metabolic encephalopathy: Code(s): G93.41 - Metabolic encephalopathy Status: Acute Assessment and Plan: likely secondary to acute UTI Patient A&O x2 accurately today, however mental status is significantly improved Will continue to monitor and provide supportive care. (4) Chronic atrial fibrillation with RVR: Code(s): I48.20 - Chronic atrial fibrillation, unspecified Status: Acute Assessment and Plan: Patient has chronic atrial fibrillation and was in AFib RVR in the ER. Patient's heart rate improved after 1 L fluid bolus and the patient's evening dose of sotalol. rate controlled at this time continue home sotalol monitor on telemetry. (5) Chronic anticoagulation: Code(s): Z79.01 - residential (current) use of anticoagulants Status: Acute Assessment and Plan: maintained on warfarin due to history of AFib INR subtherapeutic at 1.2 will increase warfarin to 7.5 mg tonight monitor INR daily. goal is 2-3 INR may be affected by antibiotics, continue to monitor (6) Fall: Qualifiers: Encounter type: initial encounter Qualified Code(s): W19.XXXA - Unspecified fall, initial encounter Code(s): W19.XXXA - Unspecified fall, initial encounter Status: Acute Assessment and Plan: patient had mechanical fall at home head CT with no acute findings when patient was evaluated by therapy there was notice of bruising and tenderness of the right foot. Right foot x-ray with no injury or fracture appreciate PT/OT eval fall precautions implemented (7) Type 2 diabetes mellitus: Code(s): E11.9 - Type 2 diabetes mellitus without complications Status: Acute Assessment and Plan: A1c is 5.8 blood sugars well controlled continue home metformin continue Accu-Cheks, low-dose sliding scale insulin, hypoglycemic protocol Subjective Date/time seen: 02/28/22 11:58 Interval history: date of service: 02/28/2022 Tonya Claudio is a 76-year-old male with a history of CVA, chronic atrial fibrillation on anticoagulation, type 2 diabetes mellitus, mitral valve prolapse, and hypertension who is seen in follow-up for encephalopathy secondary to UTI and COVID. mental status seems improved today. Patient is oriented to self and location. Initially states the year is 2022, but corrects to 2021. initially states the month is January but then corrects to February. cannot state the president. She states she is feeling more like herself today. She did not like what was surfer breakfast, therefore she has not eaten anything. She does endorse slightly decreased appetite. Denies abdominal pain, nausea, or vomiting. She denies dysuria. No hematuria. Denies urgency or frequency. Denies fevers or chills. No chest pain. No shortness of breath or cough. Denies diarrhea. States she was able to g
[2022-02-28 12:51] LABS: Glucose Point of Care 104 mg/dl (65-105)
[2022-02-28 17:48] LABS: Glucose Point of Care 95 mg/dl (65-105)
[2022-02-28] MEDS: WARFARIN (*PBKC) 7.5 MG TABLET PO (17:57)
[2022-02-28] MEDS: metFORMIN HCL 500 MG TABLET PO (17:57)
[2022-02-28 21:25] LABS: Glucose Point of Care 80 mg/dl (65-105)
[2022-03-01] VITALS (8 sets, daily range): BP systolic 111–138; BP diastolic 74–91; PULSE 71–101; RESP 16–21; TEMP 36.1–36.8; O2SAT 95–100
[2022-03-01 05:28] LABS: Hematocrit 35.7 % (37.0-47.0); Hemoglobin 11.8 g/dL (12.0-15.0); Mean Corpuscular HGB Conc 33.1 g/dl (32-36); Mean Corpuscular Hemoglobin 33.1 pg (26-34); Mean Platelet Volume 10.4 fl (7.4-10.4); Platelet Count Result 182 k/mm3 (150-375); Red Blood Count 3.57 M/mm3 (4.2-5.4); Red Cell Distribution Width 13.3 % (11.5-14.5); White Blood Count 4.6 K/mm3 (4.5-10.0)
[2022-03-01 05:38] LABS: INR 1.3; Prothrombin Time 15.3 Seconds (11.1-14.7)
[2022-03-01 05:46] LABS: Anion Gap 14 mmol/L (8-16); Blood Urea Nitrogen 17 mg/dL (7-17); Calcium 8.1 mg/dL (8.4-10.2); Carbon Dioxide 21 mmol/L (22-30); Chloride 102 mmol/L (98-107); Estimated CRCL calculation 60 ml/min; Estimated Glomerular Filt Rate > 60; Glucose 80 mg/dL (65-110); Potassium 3.6 mmol/L (3.4-5.0); Sodium 137 mmol/L (137-145)
[2022-03-01 08:43] LABS: Glucose Point of Care 90 mg/dl (65-105)
[2022-03-01] MEDS: SOTALOL HCL 80 MG TABLET PO ×2 (09:21→21:34)
[2022-03-01] MEDS: CHOLECALCIFEROL 1,000 UNITS TABLET 4000 UNITS PO (09:22)
[2022-03-01] MEDS: ATORVASTATIN 40 MG TABLET PO (09:22)
[2022-03-01] MEDS: metFORMIN HCL 500 MG TABLET 1000 MG PO (09:22)
[2022-03-01] MEDS: allopurinoL 300 MG TABLET PO (09:22)
[2022-03-01] MEDS: lisinopriL 20 MG TABLET PO (09:22)
--- NOTE | 2022-03-01 10:44 | P.PNIM_ITS ---
Progress Note: A&P Assessment and Plan (1) COVID-19: Code(s): U07.1 - COVID-19 Status: Acute Assessment and Plan: COVID PCR positive on 02/27/2022. * CXR with no acute findings * supportive care as needed. Patient has no respiratory symptoms. * not a candidate for dexamethasone or remdesivir as she has no supplemental oxygen requirement * continue isolation precautions * patient has not been vaccinated for COVID-19 (2) Acute UTI: Code(s): N39.0 - Urinary tract infection, site not specified Status: Acute Assessment and Plan: UA is abnormal with 2+ leuk esterase and 51-75 white blood cells * urine culture with growth of resistant E. coli * ceftriaxone discontinued due to intermediate susceptibility * transition to IV cefepime * no leukocytosis. patient febrile with T-max 102.2?, however this may be due to COVID-19. has been afebrile >48h (3) Acute metabolic encephalopathy: Code(s): G93.41 - Metabolic encephalopathy Status: Acute Assessment and Plan: likely secondary to acute UTI * Marked improvement in mental status * Patient A&O x2 accurately today. Suspect this is baseline * Will continue to monitor and provide supportive care. (4) Chronic atrial fibrillation with RVR: Code(s): I48.20 - Chronic atrial fibrillation, unspecified Status: Acute Assessment and Plan: Patient has chronic atrial fibrillation and was in AFib RVR in the ER. * Patient's heart rate improved after 1 L fluid bolus and the patient's evening dose of sotalol. * rate controlled at this time * continue home sotalol * monitor on telemetry. (5) Chronic anticoagulation: Code(s): Z79.01 - senior living (current) use of anticoagulants Status: Acute Assessment and Plan: maintained on warfarin due to history of AFib * INR subtherapeutic at 1.3 * will increase warfarin to 10 mg tonight * monitor INR daily. goal is 2-3 * INR may be affected by antibiotics, continue to monitor (6) Fall: Qualifiers: Encounter type: initial encounter Qualified Code(s): W19.XXXA - Unspecified fall, initial encounter Code(s): W19.XXXA - Unspecified fall, initial encounter Status: Acute Assessment and Plan: patient had mechanical fall at home * head CT with no acute findings * when patient was evaluated by therapy there was notice of bruising and tenderness of the right foot. Right foot x-ray with no injury or fracture * appreciate PT/OT eval * fall precautions implemented (7) Type 2 diabetes mellitus: Code(s): E11.9 - Type 2 diabetes mellitus without complications Status: Acute Assessment and Plan: A1c is 5.8 * blood sugars well controlled * continue home metformin * continue Accu-Cheks, low-dose sliding scale insulin, hypoglycemic protocol Subjective Date/time seen: 03/01/22 10:44 Interval history: date of service: 03/01/2022 Tonya Claudio is a 76-year-old male with a history of CVA, chronic atrial fibrillation on anticoagulation, type 2 diabetes mellitus, mitral valve prolapse, and hypertension who is seen in follow-up for encephalopathy secondary to UTI and COVID. She is feeling better today. Starting to feel more like herself. She denies dysuria or hematuria. Denies abdominal pain, flank pain, nausea, vomiting, fever, chills. No shortness of breath. No cough. Denies chest pain. She has no additional concerns. Review of System
--- NOTE | 2022-03-01 10:44 | PM.IMPN ---
Progress Note: A&P Assessment and Plan (1) COVID-19: Code(s): U07.1 - COVID-19 Status: Acute Assessment and Plan: COVID PCR positive on 02/27/2022. CXR with no acute findings supportive care as needed. Patient has no respiratory symptoms. not a candidate for dexamethasone or remdesivir as she has no supplemental oxygen requirement continue isolation precautions patient has not been vaccinated for COVID-19 (2) Acute UTI: Code(s): N39.0 - Urinary tract infection, site not specified Status: Acute Assessment and Plan: UA is abnormal with 2+ leuk esterase and 51-75 white blood cells urine culture with growth of resistant E. coli ceftriaxone discontinued due to intermediate susceptibility transition to IV cefepime no leukocytosis. patient febrile with T-max 102.2?, however this may be due to COVID-19. has been afebrile >48h (3) Acute metabolic encephalopathy: Code(s): G93.41 - Metabolic encephalopathy Status: Acute Assessment and Plan: likely secondary to acute UTI Marked improvement in mental status Patient A&O x2 accurately today. Suspect this is baseline Will continue to monitor and provide supportive care. (4) Chronic atrial fibrillation with RVR: Code(s): I48.20 - Chronic atrial fibrillation, unspecified Status: Acute Assessment and Plan: Patient has chronic atrial fibrillation and was in AFib RVR in the ER. Patient's heart rate improved after 1 L fluid bolus and the patient's evening dose of sotalol. rate controlled at this time continue home sotalol monitor on telemetry. (5) Chronic anticoagulation: Code(s): Z79.01 - intermediate accountant (current) use of anticoagulants Status: Acute Assessment and Plan: maintained on warfarin due to history of AFib INR subtherapeutic at 1.3 will increase warfarin to 10 mg tonight monitor INR daily. goal is 2-3 INR may be affected by antibiotics, continue to monitor (6) Fall: Qualifiers: Encounter type: initial encounter Qualified Code(s): W19.XXXA - Unspecified fall, initial encounter Code(s): W19.XXXA - Unspecified fall, initial encounter Status: Acute Assessment and Plan: patient had mechanical fall at home head CT with no acute findings when patient was evaluated by therapy there was notice of bruising and tenderness of the right foot. Right foot x-ray with no injury or fracture appreciate PT/OT eval fall precautions implemented (7) Type 2 diabetes mellitus: Code(s): E11.9 - Type 2 diabetes mellitus without complications Status: Acute Assessment and Plan: A1c is 5.8 blood sugars well controlled continue home metformin continue Accu-Cheks, low-dose sliding scale insulin, hypoglycemic protocol Subjective Date/time seen: 03/01/22 10:44 Interval history: date of service: 03/01/2022 Tonya Claudio is a 76-year-old male with a history of CVA, chronic atrial fibrillation on anticoagulation, type 2 diabetes mellitus, mitral valve prolapse, and hypertension who is seen in follow-up for encephalopathy secondary to UTI and COVID. She is feeling better today. Starting to feel more like herself. She denies dysuria or hematuria. Denies abdominal pain, flank pain, nausea, vomiting, fever, chills. No shortness of breath. No cough. Denies chest pain. She has no additional concerns. Review of Systems Review of Systems: All systems reviewed & are unremarkable except as noted in HPI and below Exam Narrative: General: well-nourished, well-appearing 76-year-old female, sitting up in a chair at the bedside , comfortable, NARD Neuro: awake, alert and oriented x2, speech clear, no focal neuro deficits noted HEENMT: normocephalic, atraumatic, EOMI, sclerae anicteric, moist oral mucosa Respiratory: clear to auscultation bilaterally, nonlabored breathi
[2022-03-01 12:32] LABS: Glucose Point of Care 106 mg/dl (65-105)
[2022-03-01 17:23] LABS: Glucose Point of Care 99 mg/dl (65-105)
[2022-03-01] MEDS: metFORMIN HCL 500 MG TABLET PO (17:44)
[2022-03-01] MEDS: WARFARIN (*PBKC) 10 MG TABLET PO (17:44)
[2022-03-01 22:15] LABS: Glucose Point of Care 96 mg/dl (65-105)
[2022-03-02] MEDS: fentaNYL CITRATE INJ (*CRX) 100 MCG/2 ML VIAL 50 MCG IV PUSH (00:51)
[2022-03-02 06:00] VITALS: BP 128/81; PULSE 87; RESP 18; TEMP 36.2; O2SAT 97
[2022-03-02 06:27] LABS: Hematocrit 36.5 % (37.0-47.0); Mean Corpuscular HGB Conc 32.9 g/dl (32-36); Mean Corpuscular Hemoglobin 32.9 pg (26-34); Mean Platelet Volume 10.1 fl (7.4-10.4); Platelet Count Result 179 k/mm3 (150-375); Red Blood Count 3.65 M/mm3 (4.2-5.4); Red Cell Distribution Width 13.4 % (11.5-14.5); White Blood Count 3.9 K/mm3 (4.5-10.0)
[2022-03-02 06:42] LABS: Anion Gap 10 mmol/L (8-16); Blood Urea Nitrogen 18 mg/dL (7-17); Calcium 8.5 mg/dL (8.4-10.2); Carbon Dioxide 24 mmol/L (22-30); Chloride 103 mmol/L (98-107); Estimated CRCL calculation 60 ml/min; Estimated Glomerular Filt Rate > 60; Glucose 91 mg/dL (65-110); Sodium 137 mmol/L (137-145)
[2022-03-02 06:44] LABS: INR 1.5; Prothrombin Time 17.6 Seconds (11.1-14.7)
[2022-03-02 08:29] LABS: Glucose Point of Care 89 mg/dl (65-105)
[2022-03-02 09:14] VITALS: PULSE 98
[2022-03-02] MEDS: ATORVASTATIN 40 MG TABLET PO (09:14)
[2022-03-02] MEDS: metFORMIN HCL 500 MG TABLET 1000 MG PO (09:14)
[2022-03-02] MEDS: allopurinoL 300 MG TABLET PO (09:14)
[2022-03-02] MEDS: SOTALOL HCL 80 MG TABLET PO (09:14)
[2022-03-02] MEDS: CHOLECALCIFEROL 1,000 UNITS TABLET 4000 UNITS PO (09:14)
[2022-03-02] MEDS: lisinopriL 20 MG TABLET PO (09:15)
[2022-03-02 12:11] LABS: Glucose Point of Care 154 mg/dl (65-105)
[2022-03-02 14:00] VITALS: BP 134/80; PULSE 85; RESP 20; TEMP 36.4; O2SAT 96
--- NOTE | 2022-03-02 14:42 | P.DS_ITS ---
DS: Admitting Diagnosis Discharge Date 03/02/2022 Admitting Diagnosis COVID-19 DS: Discharge Diagnosis Discharge Diagnosis (1) COVID-19: Code(s): U07.1 - COVID-19 Status: Acute Assessment and Plan: Symptom onset 02/24/2022. COVID PCR positive on 02/27/2022. * CXR with no acute findings * supportive care provided. * not a candidate for dexamethasone or remdesivir as she had no supplemental oxygen requirement * isolation precautions implemented during admission * patient and family educated regarding COVID-19 precautions following discharge * has not been vaccinated for COVID-19 (2) Acute UTI: Code(s): N39.0 - Urinary tract infection, site not specified Status: Acute Assessment and Plan: UA is abnormal with 2+ leuk esterase and 51-75 white blood cells * urine culture with growth of resistant E. coli * ceftriaxone discontinued on 03/01 due to intermediate susceptibility * transitioned to IV cefepime on 03/01 * will continue p.o. Bactrim based on susceptibility report to complete a total of 7 days of antibiotic therapy (3) Acute metabolic encephalopathy: Code(s): G93.41 - Metabolic encephalopathy Status: Resolved Assessment and Plan: Resolved. [place] to be secondary to acute UTI * Marked improvement in mental status, patient returned to baseline (4) Chronic atrial fibrillation with RVR: Code(s): I48.20 - Chronic atrial fibrillation, unspecified Status: Acute Assessment and Plan: Patient has chronic atrial fibrillation and was in AFib RVR in the ER. * Patient's heart rate improved after 1 L fluid bolus and the patient's evening dose of sotalol. * rate controlled throughout remainder of admission * continue home sotalol (5) Chronic anticoagulation: Code(s): Z79.01 - intermediate (current) use of anticoagulants Status: Acute Assessment and Plan: Maintained on warfarin for stroke prophylaxis due to history of AFib * INR subtherapeutic on presentation and remained subtherapeutic despite increased doses of warfarin * CHADS2-VASC is 6 * patient transitioned to Eliquis for stroke prophylaxis. Priced per care coordination and patient agreeable to transition. * reviewed anticoagulation precautions with both patient and her (6) Fall: Qualifiers: Encounter type: initial encounter Qualified Code(s): W19.XXXA - Unspecified fall, initial encounter Code(s): W19.XXXA - Unspecified fall, initial encounter Status: Acute Assessment and Plan: patient had mechanical fall at home * suspect secondary to weakness in light of acute infection * head CT with no acute findings * participated in therapy during admission * fall precautions implemented and discussed with pt and family (7) Type 2 diabetes mellitus: Code(s): E11.9 - Type 2 diabetes mellitus without complications Status: Acute Assessment and Plan: A1c is 5.8 * blood sugars well controlled * continue home metformin DS: Summary Hospital Course Hospital Course: Date of admission: 02/26/2022 date of discharge: 03/02/2022 Tonya Claudio is a 76-year-old male with a history of CVA, chronic atrial fibrillation on anticoagulation, type 2 diabetes mellitus, mitral valve prolapse, and hypertension who presented to the emergency department on 02/26 after suffering a fall at home and had alteration her mental status, only A&O x2. On presentation to the ED, s
--- NOTE | 2022-03-02 14:42 | PM.DS ---
DS: Admitting Diagnosis Discharge Date 03/02/2022 Admitting Diagnosis COVID-19 DS: Discharge Diagnosis Discharge Diagnosis (1) COVID-19: Code(s): U07.1 - COVID-19 Status: Acute Assessment and Plan: Symptom onset 02/24/2022. COVID PCR positive on 02/27/2022. CXR with no acute findings supportive care provided. not a candidate for dexamethasone or remdesivir as she had no supplemental oxygen requirement isolation precautions implemented during admission patient and family educated regarding COVID-19 precautions following discharge has not been vaccinated for COVID-19 (2) Acute UTI: Code(s): N39.0 - Urinary tract infection, site not specified Status: Acute Assessment and Plan: UA is abnormal with 2+ leuk esterase and 51-75 white blood cells urine culture with growth of resistant E. coli ceftriaxone discontinued on 03/01 due to intermediate susceptibility transitioned to IV cefepime on 03/01 will continue p.o. Bactrim based on susceptibility report to complete a total of 7 days of antibiotic therapy (3) Acute metabolic encephalopathy: Code(s): G93.41 - Metabolic encephalopathy Status: Resolved Assessment and Plan: Resolved. [place] to be secondary to acute UTI Marked improvement in mental status, patient returned to baseline (4) Chronic atrial fibrillation with RVR: Code(s): I48.20 - Chronic atrial fibrillation, unspecified Status: Acute Assessment and Plan: Patient has chronic atrial fibrillation and was in AFib RVR in the ER. Patient's heart rate improved after 1 L fluid bolus and the patient's evening dose of sotalol. rate controlled throughout remainder of admission continue home sotalol (5) Chronic anticoagulation: Code(s): Z79.01 - intermediate manager (current) use of anticoagulants Status: Acute Assessment and Plan: Maintained on warfarin for stroke prophylaxis due to history of AFib INR subtherapeutic on presentation and remained subtherapeutic despite increased doses of warfarin CHADS2-VASC is 6 patient transitioned to Eliquis for stroke prophylaxis. Priced per care coordination and patient agreeable to transition. reviewed anticoagulation precautions with both patient and her (6) Fall: Qualifiers: Encounter type: initial encounter Qualified Code(s): W19.XXXA - Unspecified fall, initial encounter Code(s): W19.XXXA - Unspecified fall, initial encounter Status: Acute Assessment and Plan: patient had mechanical fall at home suspect secondary to weakness in light of acute infection head CT with no acute findings participated in therapy during admission fall precautions implemented and discussed with pt and family (7) Type 2 diabetes mellitus: Code(s): E11.9 - Type 2 diabetes mellitus without complications Status: Acute Assessment and Plan: A1c is 5.8 blood sugars well controlled continue home metformin DS: Summary Hospital Course Hospital Course: Date of admission: 02/26/2022 date of discharge: 03/02/2022 Tonya Claudio is a 76-year-old male with a history of CVA, chronic atrial fibrillation on anticoagulation, type 2 diabetes mellitus, mitral valve prolapse, and hypertension who presented to the emergency department on 02/26/2022 after suffering a fall at home and had alteration her mental status, only A&O x2. On presentation to the ED, she was tachycardic and tachypneic, afebrile, additional vital signs stable, laboratory workup relatively unremarkable, urinalysis grossly abnormal, CT of head showed no acute findings, and patient had positive COVID PCR. She was admitted to the hospitalist service for further evaluation and management. Please see above for further details. From a COVID standpoint, she had no supplemental oxygen requirement and therefore did not receive dexamethasone or
--- NOTE | 2022-03-02 16:19 | PC.NURSE ---
Pt being switched from Warfarin to Eliquis. [facility]ist spoke with pt about paying $47 a month for the Eliquis. RN educated pt on stopping warfarin and starting Eliquis. Pt verbalized understanding.
== END 2022-03-02 16:00 | disposition home or self-care (01) | DRG 177 ==
LOC: ANHED 21:52 → ANH2MED 23:01
PROVIDERS: Physician Assistant; Admitting Provider Internal Medicine; Emergency Provider Emergency Medicine; PCP Internal Medicine; Visit Provider Family Medicine
DX: U07.1 COVID-19 (principal); G93.41 Metabolic encephalopathy; I48.20 Chronic atrial fibrillation, unspecified; N39.0 Urinary tract infection, site not specified; Z16.30 Resistance to unspecified antimicrobial drugs; B96.20 Unspecified Escherichia coli [E. coli] as the cause of diseases classified elsewhere; Z28.310 Unvaccinated for COVID-19; M10.9 Gout, unspecified; I10 Essential (primary) hypertension; E11.9 Type 2 diabetes mellitus without complications; E55.9 Vitamin D deficiency, unspecified; E78.00 Pure hypercholesterolemia, unspecified; I34.1 Nonrheumatic mitral (valve) prolapse; M19.90 Unspecified osteoarthritis, unspecified site; S90.31XA Contusion of right foot, initial encounter; W18.30XA Fall on same level, unspecified, initial encounter; Z78.0 Asymptomatic menopausal state; Z79.01 Long term (current) use of anticoagulants; Z79.899 Other long term (current) drug therapy; Z86.73 Personal history of transient ischemic attack (TIA), and cerebral infarction without residual deficits; Z88.0 Allergy status to penicillin
CPT/HCPCS: 36415; 51701; 70450; 71045; 73620; 80048; 80053; 81001; 82728; 82948; 83605; 83615; 85025; 85027; 85610; 85730; 86140; 87077; 87086; 87186; 87502; 93005; 96361; 96365; 96366; 96367; 97110; 97161; 97165; 97530; 97535; 99285; A9270; C9803; G0378; J0692; J0696; J3010; J7030; U0003; U0005

== ENCOUNTER 2023-03-11 09:25 | Outpatient (CLI) | payer MEDICARE, SELFPAY ==
--- NOTE | ~2023-03-11 | MM_ITS ---
EXAMINATION: MM screening [facility] BI w [facility] HISTORY: Screening mammogram TECHNIQUE: Craniocaudal and mediolateral oblique 3-D tomosynthesis images were obtained and synthetic 2-D images were generated. Bilateral rotated lateral CC views. CAD analysis was submitted and interp reted. COMPARISON: 12/22/2021, 12/20/2020, 11/21/2019 bilateral screening mammogram examinations BREAST PARENCHYMAL COMPOSITION: The breasts are almost entirely fatty. FINDINGS: Multiple bilateral benign calcifications are again present. There is no evidence of suspici ous mass, calcification, or architectural distortion to suggest malignancy in either breast. There pop s been no suspicious interval change. IMPRESSION: 1. No mammographic evidence of malignancy. 2. Recommend routine screening mammography in one year. BI-RADS Category 2: Benign finding(s). Reviewed, dictated and finalized at location A.
== END 2023-03-11 09:26 | disposition home or self-care (01) ==
PROVIDERS: PCP Nurse Practitioner; Visit Provider Family Medicine
DX: Z12.31 Encounter for screening mammogram for malignant neoplasm of breast (principal)
CPT/HCPCS: 77063; 77067

== ENCOUNTER 2025-02-01 08:03 | Outpatient (CLI) | payer MEDICARE, SELFPAY ==
--- NOTE | ~2025-02-01 | DEXA_ITS ---
Bone Density Report Name: DIMITRIOS PAN Age: 79 Sex: Female Ethnicity: White Date of : 1945 Indication: postmenopausal; screening for osteoporosis; height loss; rheumatoid arthritis; Referring Provider: SHANTHI MAO Study: Bone densitometry was performed. Exam Date: February 01, 2025 Accession number: [id number] Bone Density: Region BMD T-score Z-score Classification AP Spine(L1, L4) 1.380 3.1 5.7 Normal Femoral Neck (Left) 0.769 -0.7 1.5 Normal Total Hip (Left) 1.075 1.1 3.0 Normal Femoral Neck (Right) 0.787 -0.6 1.6 Normal Total Hip (Right) 1.117 1.4 3.4 Normal Total Hip Mean 1.096 1.3 3.2 Normal World Health Organization criteria for BMD impression classify patients as: Normal (T-score at or above -1.0), Osteopenia (T-score between -1.0 and -2.5), or Osteoporosis (T-score at or below -2.5). 10-year Fracture Risk: FRAX not reported because: All T-scores for Spine Total, Hip Total, Femoral Neck at or above -1.0 Treated for osteoporosis Clinical Information Provided by Patient: Has rheumatoid arthritis Is being treated for osteoporosis Has used the following medications: Vitamin D Patient maximum height was 62 Menopause Age: 54 No regular weight bearing exercise Drinks caffeinated beverages Onset of menses at age 15 Number of children 3 Impression: The patient has normal bone mass. Discussion: It is important to ask patients whether they are taking their medications and to encourage continued and appropriate compliance with their osteoporosis therapies to reduce fracture risk. It is also important to review their risk factors and encourage appropriate calcium and vitamin D intakes, exercise, fall prevention and other lifestyle measures. Follow-Up: Consider a repeat BMD and Vertebral Fracture Assessment (VFA) exam in 2 years or sooner if medically necessary, to reassess this patient's status. Reported by: SOREN on 02/01/2025 9:02:00 AM. Reviewed, dictated and finalized at location A.
== END 2025-02-01 08:04 | disposition home or self-care (01) ==
LOC: MICIMG 08:04
PROVIDERS: PCP Family Medicine; Visit Provider Family Medicine
DX: Z78.0 Asymptomatic menopausal state (principal)
CPT/HCPCS: 77080